=== PATIENT | female | born 1960 | race Caucasian/White ===

== ENCOUNTER 2018-07-02 13:06 | Day surgery (SDC) | payer BC ==
[~2018-07-02] VITALS: Ht 170.2 cm; Wt 69.0 kg
[~2018-07-02 13:06] MED LIST: MUCINEX D1 TER PO; SYNTHROID0.088 MG/T PO
[2018-07-02] MEDS ORDERED: SYNTHROID0.1 MG/TAB PO (14:19)
[2018-07-02] MEDS ORDERED: CYMBALTA 20MG20 MG PO (14:19)
[2018-07-02 14:48] VITALS: BP 137/76; PULSE 58; TEMP 97.7
[2018-07-02 16:30] VITALS: BP 119/74; PULSE 60; TEMP 97.9
[2018-07-02 16:45] VITALS: BP 122/81; PULSE 65
[2018-07-02] MEDS ORDERED: ULTRAM 50MG TAB50 MG PO (17:01)
== END 2018-07-02 17:15 | disposition home or self-care (01) ==
LOC: SDCO 13:06
DX: M79.89 Other specified soft tissue disorders (principal); D03.62 Melanoma in situ of left upper limb, including shoulder; Z79.899 Other long term (current) drug therapy; E03.9 Hypothyroidism, unspecified
CPT/HCPCS: J0690; J1100; J2405; J2704; J2765; J3010; J7120

== ENCOUNTER → 2019-12-07 | Outpatient (CLI) | payer BC ==
[~2019-12-07] MED LIST changes: +CYMBALTA 20MG20 MG PO; +SYNTHROID0.1 MG/TAB PO; +ULTRAM 50MG TAB50 MG PO
== END ==
LOC: COL.RAD 11-26 12:30
DX: F03.90 Unspecified dementia, unspecified severity, without behavioral disturbance, psychotic disturbance, mood disturbance, and anxiety (principal)